=== PATIENT | male | born 1955 | race Caucasian/White ===

== ENCOUNTER 2020-07-26 16:46 | Emergency (ER) | payer MEDICARE, SELFPAY ==
[~2020-07-26] VITALS: Ht 170.2 cm; Wt 54.4 kg
[2020-07-26 16:50] VITALS: BP_SYST 143
[2020-07-26] MEDS ORDERED: CIME800T PO (17:15)
[2020-07-26] MEDS ORDERED: METO25TA6 PO (17:15)
[2020-07-26] MEDS ORDERED: QUET400T PO (17:15)
[2020-07-26] MEDS ORDERED: APIX5TAB4 PO (17:15)
[2020-07-26 17:41] LABS: BASOPHILS # (AUTO) 0.1 K/uL (0.0-0.2); BASOPHILS % (AUTO) 0.5 % (0.0-2.0); EOSINOPHILS % (AUTO) 0.4 % (0.0-4.0); HEMATOCRIT 45.5 % (36-54); LYMPHOCYTES # (AUTO) 1.4 K/uL (1.0-5.5); LYMPHOCYTES % (AUTO) 12.6 % (20.5-51.5); MEAN CORPUSCULAR HEMOGLOBIN 32 pg (27-31); MEAN CORPUSCULAR HGB CONC 33 % (32-36); MEAN CORPUSCULAR VOLUME 96 fL (79.0-98.0); MONOCYTES # (AUTO) 0.9 K/uL (0.0-1.0); NEUTROPHILS % (AUTO) 78.5 % (40.0-70.0); PLATELET COUNT (AUTO) 260 K/uL (130-430); RED BLOOD CELL COUNT(AUTO) 4.77 MIL/uL (4.2-6.2); RED CELL DISTRIBUTION WIDTH 14.2 % (9.0-15.0); WHITE BLOOD COUNT (AUTO) 11.5 K/uL (4.8-10.8)
[2020-07-26] MEDS: FUROSEMIDE 100 MG/10 ML VIAL IVP ONE (17:42)
[2020-07-26] MEDS: methylPREDNISolone SOD SUCC 500 MG/VIAL (Solu-MEDROL) IV ONE (17:43)
[2020-07-26] MEDS: IPRATROPIUM/ALBUTEROL SULFATE 3 ML AMPUL.NEB (DUONEB) INH ONE (17:49)
[2020-07-26 18:06] LABS: ANION GAP 8 (5-15); CALCIUM 8.7 mg/dL (8.4-11.0); CHLORIDE 101 mmol/L (98-107); CREATININE 0.64 mg/dL (0.55-1.30); GLUCOSE 96 mg/dL (70-99); POTASSIUM 4.3 mmol/L (3.5-5.1); SODIUM SERUM 136 mmol/L (136-145); UREA NITROGEN, BLOOD 14 mg/dL (8-21)
[2020-07-26 18:20] LABS: ALANINE AMINOTRANSFERASE 20 U/L (12-78); ALBUMIN 3.1 g/dL (3.4-4.8); ASPARTATE AMINOTRANSFERASE 15 U/L (10-37); GFR AFRICAN AMERICAN 162 mL/min (>90); TOTAL BILIRUBIN 0.3 mg/dL (0.0-1.0)
[2020-07-26 20:20] VITALS: BP_SYST 131
== END 2020-07-26 20:20 | disposition home or self-care (01) ==
LOC: SED 16:46
DX: J44.1 Chronic obstructive pulmonary disease with (acute) exacerbation (principal); Z79.899 Other long term (current) drug therapy; Z88.8 Allergy status to other drugs, medicaments and biological substances; Z71.6 Tobacco abuse counseling; Z20.828 Contact with and (suspected) exposure to other viral communicable diseases
CPT/HCPCS: 36415; 71045; 80053; 83880; 84484; 85025; 87426; 93005; 94640; 96374; 96375; 99291; J1940